=== PATIENT | female | born 1980 | race Caucasian/White ===

== ENCOUNTER 2017-04-26 09:24 | Day surgery (SDC) | payer MEDICAID ==
[~2017-04-26] VITALS: Ht 162.6 cm; Wt 134.5 kg
[2017-04-26 09:59] VITALS: BP 139/95; PULSE 74; TEMP 98.7
[2017-04-26] MEDS ORDERED: PRIL40 PO (10:09)
[2017-04-26] MEDS ORDERED: ZANTAC 150MG T150 MG PO (10:09)
[2017-04-26] MEDS ORDERED: PHENERGAN 25 TA25 MG PO (10:10)
[2017-04-26] MEDS ORDERED: RT ADVAIR 228 DISKUS IH (10:11)
[2017-04-26] MEDS ORDERED: ASPIRIN E.C. 8181 MG PO (10:11)
[2017-04-26] MEDS ORDERED: FLONASEALLERGY NS (10:12)
[2017-04-26] MEDS ORDERED: PROVENTIL0.09 MG/A1 IH (10:13)
[2017-04-26 10:55] VITALS: BP 116/84; PULSE 76; TEMP 98.4
[2017-04-26 11:10] VITALS: BP 108/80; PULSE 75
[2017-04-26 11:25] VITALS: BP 119/89; PULSE 71
[2017-04-26 11:40] VITALS: BP 108/75; PULSE 69
== END 2017-04-26 11:40 | disposition home or self-care (01) ==
LOC: SDCO 09:24
DX: K21.0 Gastro-esophageal reflux disease with esophagitis (principal); K30 Functional dyspepsia; K44.9 Diaphragmatic hernia without obstruction or gangrene; F17.200 Nicotine dependence, unspecified, uncomplicated; Z90.710 Acquired absence of both cervix and uterus
CPT/HCPCS: J2250; J3010; J7030